=== PATIENT | female | born 1965 | race Native Hawaiian/Other Pacific Islander ===

== ENCOUNTER 2021-10-10 09:48 | Outpatient (CLI) | payer BC, OTHER ==
[~2021-10-10 09:48] MED LIST: ALPR0.5T24; ATEN25TA21 PO; CELEBREX200 MG PO; DULO60CA2 PO; ESTRACE2 MG; ESTRACE2 MG PO; FURO40TA93 PO; GABA300C2 PO; NEXIUM40 M1 PO; NUCYNTA ER50 MG PO; NUCYNTA100 MG PO; SYNTHROID175 MCG PO; ZOLP10TA2; ZOLP10TA2 PO
== END 2021-10-10 19:24 | disposition home or self-care (01) ==
LOC: RAD 09:48
PROVIDERS: ATTEND Nurse Practitioner Family
DX: Z13.820 Encounter for screening for osteoporosis (principal); Z79.890 Hormone replacement therapy